=== PATIENT | female | born 1990 | race African-American/Black ===

== ENCOUNTER 2020-02-01 10:13 | Emergency (ER) | payer BC ==
[2020-02-01] MEDS ORDERED: ONDANSETRON 4 MG/2 ML VIAL IVPUSH ONE (10:23)
[2020-02-01] MEDS ORDERED: SODIUM CHLORIDE 0.9% 500 ML INFUS.BAG IV ONE (10:23)
--- NOTE | 2020-02-01 10:23 | PDOC ---
Rapid Medical Evaluation Time Seen by Provider: 02/01/20 10:15 Medical Evaluation: 02/01/20 10:21 I performed a brief in-person evaluation of this patient. Pt is a 30 y/o female who presents to the ED with vomiting since last night after drinking too much alcohol for her 30th bday. She states she has only been able to keep down small amts of fluids. Pt has h/o DVT many years ago and is no longer on blood thinners. She denies any other complaints. Pertinent physical exam findings: speaking in full sentences, slightly dry oral mucosa I have ordered the following: saline lock, 1L NS, zofran IV Patient to proceed to ED for further evaluation Discharge Disposition - Diagnosis Vomiting - Referrals - Patient Instructions - Post Discharge Activity
[2020-02-01 10:24] VITALS: BP 121/75; PULSE 68; TEMP 97.7; BMI 38.4
--- NOTE | 2020-02-01 12:23 | PDOC ---
History of Present Illness - General Chief Complaint: Nausea/Vomiting Stated Complaint: VOMITTING Time Seen by Provider: 02/01/20 10:15 History Source: Patient Exam Limitations: No Limitations - History of Present Illness Initial Comments: 02/01/20 12:17 HPI 30 y/o female with remote history of DVT years ago, no longer on AC, who presents to the ED with NBNB vomiting since last night after drinking too much alcohol for her 30th birthday bash. She states she has only been able to keep down small amounts of liquid. She denies any other complaints. Denies fever, chills, chest pain, SOB, palpitation, dizziness, weakness, diarrhea, bloody stools, bloody emesis, abdominal pain, bladder and bowel problems, focal weakness/paresthesias, leg swelling/pain, rash. No sick contacts or travel. No new changes in medications. No suspicious food intake Allergies: pcn Past Medical History/: remote DVT PSH: none Social history: Lives with partner. No tobacco, or drug use. +ETOH occasionally/socially Meds: as documented in EMR Family history: noncontributory Review of systems Constitutional: no fevers or chills. No weakness HEENT: no headache or dizziness. No congestion. No visual/hearing disturbances. CVS: no cp or syncope. Resp: no sob. No cough. Gastrointestinal: no abdominal pain, diarrhea or bloody stools. +nausea, +vomiting. Genitourinary: no urinary sx, urgency or frequency, hematuria. MUSCULOSKELETAL: No joint pain and swelling. No neck or back pain. SKIN: no redness or skin changes, no discharge, no rash. No wounds. Hematologic: no easy bruising/bleeding. +h/o DVT NEUROLOGIC: No headache, dizziness, LOC or altered mental status. No weakness, numbness or tingling. Psych: no anxiety or depression Allergic/Immunologic: no allergies All other systems reviewed and negative, or as documented in HPI. Physical exam General: Well appearing, awake and alert, NAD. HEENT: NCAT, PERRL, EOMI, clear conjunctiva, anicteric, dry mucus membranes, clear oropharynx, no oral lesions.. Neck: neck supple, FROM Resp: CTAB, normal and even respirations, no respiratory distress CVS: RRR, no murmurs, 2+ peripheral pulses throughout, no peripheral edema Abdomen: soft, NTND, no rebound or guarding. Back: nontender, normal inspection and ROM MSK: no edema, OWENS x4, ROM intact. No clubbing or cyanosis. normal bulk and tone. Extremities: no calf tenderness Neuro: alert, oriented appropriately; no focal neurologic deficits Psych: Calm and cooperative Skin: warm and well perfused, cap refill <2 sec, normal color, no rash or skin discoloration. 02/01/20 12:30 Past History - Medical History Allergies/Adverse Reactions: Allergies Allergy/AdvReac Type Severity Reaction Status Date / Time Penicillins Allergy Verified 02/01/20 10:24 Home Medications: Ambulatory Orders Ondansetron [Zofran *Odt*] 4 mg SL TID PRN #6 od.tablet 02/01/20 COPD: No Other medical history: DVT - Psycho-Social/Smoking History Smoking History: Never smoked - Substance Abuse Hx (Audit-C & DAST Scrn) How often the patient has a drink containing alcohol: Monthly or less Score: In Men: 4 or > Positive; In Women: 3 or > Positive: 1 Screen Result (Pos requires Nsg. Audit-10AR): Negative *Physical Exam - Vital Signs Last Vital Signs Temp Pulse Resp BP Pulse Ox 97.7 F 68 18 121/75 100 02/01/20 10:02/01/20 10:02/01/20 10:02/01/20 10:02/01/20 10:21 ED Treatment Course - Medications Given in the ED: ED Medications Discontinued Medications Generic Name Dose Route Start Last Admin Trade Name Freq PRN Reason Stop Dose Admin Ondansetron HCl 4 mg 02/01/20 10:23 02/01/20 11:40 Zofran Injection IVPUSH 02/01/20 10:24 4 mg ONCE ONE Administration Sodium Chloride 1,000 ml 02/01/20 10:02/01/20 11:40 Normal Saline - IV 02/01/20 10:24 1,000 ml ONCE ONE Administration Medical Decision Making - Medical Decision Making 02/01/20 12:19 Vital Signs Temp Pulse Resp BP Pulse Ox 97.7 F 68 18 121/75 100 02/01/20 10:02/01/20 10:02/01/20 10:02/01/20 10:21 02/01/20 10:21 Vital signs reviewed within normal limits Differential diagnosis includes gastroenteritis, alcohol related emesis, gastritis, dehydration, hangover, no colicky symptoms. There is no abdominal tenderness no peritoneal findings. doubt perf/obstruction. no lower quad tenderness unlikely , pt is with female partner. No systemic symptoms, no fevers or chills Doubt any acute abdomen, abdomen is nontender diffusely in all quadrants. No trauma Given IV fluids, Zofran, reassess. No evidence of alcohol withdrawal, or intoxication at this time as her speech is clear, she is clinically sober, will trial oral fluids The patient appears comfortable and states that pain is improved. Given medications with clinical improvement. Tolerating oral intake. Vital signs reviewed and are normal. On repeat physical exam, the abdomen is soft and nontender, no suggestive findings for acute abdominal process at this time. All diagnostics tests reviewed and discussed with the patient. alcohol use and safety reviewed, hydration encouraged, supportive care. return precautions, PCP followup Discharge - Discharge Information Problems reviewed: Yes Clinical Impression/Diagnosis: Alcohol consumption binge drinking Vomiting Qualifiers: Vomiting type: unspecified Vomiting Intractability: non-intractable Nausea presence: with nausea Qualified Code(s): R11.2 - Nausea with vomiting, unspecified Condition: Improved Disposition: HOME - Admission No - Additional Discharge Information Prescriptions: Ondansetron [Zofran *Odt*] 4 mg SL TID PRN #6 od.tablet PRN Reason: nausea, vomiting - Follow up/Referral Referrals: [facility] [place] [Provider Group] [facility] [Provider Group] - Patient Discharge Instructions Patient Printed Discharge Instructions: DI for Vomiting -- Adult, DI for Alcohol Poisoning Additional Instructions: 1) Please follow-up with your primary care doctor in the next 1-2 days. Please call tomorrow for for any urgent issues. you were evaluated for a hangover after your alcohol use last night 2) If you have any worsening of symptoms or any other concerns please return to the ED immediately. Return if worsening symptoms including fevers, headache, vomiting, visual or hearing disturbances, abdominal pain, chest pain, shortness of breath, syncope, dehydration, inability to take things by mouth/vomiting, altered mental status, or worsening concerning symptoms. 3) Please continue taking your home medications as directed. your medications on discharge include zofran three times a day as needed for nausea/vomiting . be cautious with binge drinking alcohol Stay well hydrated and rest adequately. Make an appointment. If you cannot follow-up with your primary care doctor please return to the ED - Post Discharge Activity
== END 2020-02-01 12:38 | disposition short-term general hospital (02) ==
LOC: JER 10:13
PROC: 3E033NZ Introduction of Analgesics, Hypnotics, Sedatives into Peripheral Vein, Percutaneous Approach (ICD-10-PCS; principal; 2020-02-01)
DX: R11.2 Nausea with vomiting, unspecified (principal)
CPT/HCPCS: 99284-25